=== PATIENT | female | born 1970 | race Caucasian/White ===

== ENCOUNTER 2017-03-30 10:53 | Emergency (ER) | payer OTHER ==
[~2017-03-30] VITALS: Ht 157.5 cm; Wt 78.9 kg
[2017-03-30 11:04] VITALS: BP 140/81; PULSE 77; RESP 16; TEMP 98.1; O2SAT 98
[2017-03-30] MEDS ORDERED: FLUO-1 PO (11:13)
--- NOTE | 2017-03-30 11:19 | PD ---
HPI Chief Complaint: Head Injury Time Seen by Provider: 11:16 Travel History International Travel<30 days: No Contact w/Intl Traveler<30days: No Traveled to known affect area: No History of Present Illness HPI This 47-year-old female is complaining of headache and neck pain. On Monday she was using a 4 luciano and had an accident. She hit her head quite hard. She does not think she had a loss of consciousness. She has been having headaches and neck pain since then. Today she had some burning in her scalp and she felt like her cheeks were going numb. She has been able to walk. She is having some pain in her neck is not having chest or abdominal pain. Her extremities are normal PFSH Past Medical History Anxiety: Yes Diminished Hearing: No Tetanus Vaccination: > 5 Years Influenza Vaccination: Yes ?: Not Past Surgical History Section: Yes (x2) Cholecystectomy: Yes Social History Alcohol Use: No Tobacco Use: No Substance Use: No Allergies-Medications (Allergen,Severity, Reaction): Coded Allergies: No Known Allergies (Unverified , 03/30/17) Reported Meds & Prescriptions Reported Meds & Active Scripts Active Reported Prozac (Fluoxetine HCl) 10 Mg Cap 10 Mg PO DAILY Review of Systems General / Constitutional: No: Fever, Chills Eyes: No: Diploplia HENT: Positive: Headaches Cardiovascular: No: Chest Pain or Discomfort, Palpitations Respiratory: No: Cough, Shortness of Breath Gastrointestinal: No: Nausea, Vomiting Genitourinary: No: Urgency Musculoskeletal: Positive: Myalgias, Arthralgias Skin: No Rash Neurologic: No: Weakness, Dizziness Hematologic/Lymphatic: No: Easy Bruising Physical Exam Narrative GENERAL: Well-developed female SKIN: Focused skin assessment warm/dry. HEAD: Atraumatic. Normocephalic. EYES: Pupils equal and round. No scleral icterus. No injection or drainage. ENT: No nasal bleeding or discharge. Mucous membranes pink and moist. NECK: Trachea midline. No JVD. His CARDIOVASCULAR: Regular rate and rhythm. No murmur appreciated. RESPIRATORY: No accessory muscle use. Clear to auscultation. Breath sounds equal bilaterally. GASTROINTESTINAL: Abdomen soft, non-tender, nondistended. Hepatic and splenic margins not palpable. MUSCULOSKELETAL: No obvious deformities. No clubbing. No cyanosis. No edema. NEUROLOGICAL: Awake and alert. No obvious cranial nerve deficits. Motor grossly within normal limits. Normal speech. PSYCHIATRIC: Appropriate mood and affect; insight and judgment normal. Data Data Last Documented VS Vital Signs Date Time Temp Pulse Resp B/P Pulse Ox O2 Delivery O2 Flow Rate FiO2 03/30/17 11:04 98.1 77 16 140/[address] Brain W/O Iv Contrast(Rout) (03/30/17 11:16) Ct Cerv Spine W/O Contrast (03/30/17 11:16) MDM Medical Decision Making Medical Screen Exam Complete: Yes Emergency Medical Condition: Yes Medical Record Reviewed: Yes Differential Diagnosis Differential includes cervical strain, skull fracture, concussion, intracerebral hemorrhage, cervical fracture Narrative Course CT of the brain is read as negative. CT of the cervical spine shows some arthritic changes at C2-C3. Patient has symptoms of concussion with ongoing headache since her injury. She also does have some cervical strain. She is stable for discharge Diagnosis Primary Impression: Concussion Qualified Code: S06.0X0A - Concussion without loss of consciousness, initial encounter Additional Impression: Cervical strain, acute Qualified Code: S16.1XXA - Acute strain of neck muscle, initial encounter Additional Instructions: Tylenol or Motrin for pain Disposition: DISCHARGE HOME Condition: Stable John Bolanos MD Mar 30, 2017 11:19
--- NOTE | 2017-03-30 11:42 | RADRPT ---
EXAM DATE/TIME: 03/30/2017 11:32 [facility] COMPARISON: No previous studies available for comparison. INDICATIONS : Trauma. Fell off 4 luc[address] and hit her head 6 days ago. Head and neck pain. RADIATION DOSE: 65.75 CTDIvol (mGy) MEDICAL HISTORY : None SURGICAL HISTORY : Cholecystectomy. section. ENCOUNTER: Initial ACUITY: 4 - 6 days PAIN SCALE: 6/10 LOCATION: cranial TECHNIQUE: Multiple contiguous axial images were obtained of the head. Using automated exposure control and adj ustment of the mA and/or kV according to patient size, radiation dose was kept as low as reasonably a chievable to obtain optimal diagnostic quality images. DICOM format image data is available electro nically for review and comparison. FINDINGS: CEREBRUM: The ventricles are normal for age. No evidence of midline shift, mass lesion, hemorrhage or acute in farction. No extra-axial fluid collections are seen. POSTERIOR FOSSA: The cerebellum and brainstem are intact. The 4th ventricle is midline. The cerebellopontine angle i s unremarkable. EXTRACRANIAL: The visualized portion of the orbits is intact. SKULL: The calvaria is intact. No evidence of skull fracture. CONCLUSION: Normal examination for a patient of this age. Ousmane Higginbotham MD on March 30, 2017 at 11:40 Board Certified Radiologist. This report was verified electronically.
--- NOTE | 2017-03-30 11:52 | RADRPT ---
EXAM DATE/TIME: 03/30/2017 11:32 [facility] COMPARISON: No previous studies available for comparison. INDICATIONS : Trauma. Fell off 4 luciano and hit her head 6 days ago. Head and neck pain. RADIATION DOSE: 26.23 CTDIvol (mGy) MEDICAL HISTORY : None SURGICAL HISTORY : Cholecystectomy. section. ENCOUNTER: Initial ACUITY: 4 - 6 days PAIN SCALE: 6/10 LOCATION: neck TECHNIQUE: Volumetric scanning of the cervical spine was performed. Multiplanar reconstructions in the sagittal, coronal and oblique axial planes were performed. Using automated exposure control and adjustment o f the mA and/or kV according to patient size, radiation dose was kept as low as reasonably achievable to obtain optimal diagnostic quality images. DICOM format image data is available electronically f or review and comparison. FINDINGS: VERTEBRAE: Normal vertebral body height. No acute bony fracture. ALIGNMENT: No evidence of subluxation. C2-C3: The bony spinal canal is normal in size. No evidence of disc bulge or herniation. The neural forami na are bilaterally patent. Facet arthritis on the right side. C3-C4: The bony spinal canal is normal in size. No evidence of disc bulge or herniation. The neural forami na are bilaterally patent. C4-C5: The bony spinal canal is normal in size. No evidence of disc bulge or herniation. The neural forami na are bilaterally patent. C5-C6: The bony spinal canal is normal in size. No evidence of disc bulge or herniation. The neural forami na are bilaterally patent. C6-C7: The bony spinal canal is normal in size. No evidence of disc bulge or herniation. The neural forami na are bilaterally patent. C7-T1: The bony spinal canal is normal in size. No evidence of disc bulge or herniation. The neural forami na are bilaterally patent. CONCLUSION: 1. No acute bony fracture. 2. There is facet arthritis at C2-3 on the right. Ousmane Higginbotham MD on March 30, 2017 at 11:48 Board Certified Radiologist. This report was verified electronically.
== END 2017-03-30 12:33 | disposition home or self-care (01) ==
LOC: PHED 10:53
DX: S06.0X0A Concussion without loss of consciousness, initial encounter (principal); S16.1XXA Strain of muscle, fascia and tendon at neck level, initial encounter; V86.59XA Driver of other special all-terrain or other off-road motor vehicle injured in nontraffic accident, initial encounter; Y93.89 Activity, other specified; Y92.9 Unspecified place or not applicable
CPT/HCPCS: 70450; 72125